=== PATIENT | male | born 1990 | race African-American/Black ===

== ENCOUNTER 2017-01-12 12:22 | Emergency (ER) | payer SELFPAY ==
[2017-01-12 12:36] VITALS: BP 114/69
--- NOTE | 2017-01-12 13:29 | UC ---
UC General HPI - HPI Summary HPI Summary: c/o fatigue body aches, some weight gain no fears chills or night sweats, . Patient is new here from [place]-works to 2 jobs sleeps 5-6 hours q night and awakes every 2 hours. - History of Current Complaint Hx Obtained From: Patient Onset/Duration: Gradual Onset, Lasting Weeks, Worse Since - past 6-8 weeks Timing: Constant <Theodora Oshea - Last Filed: 01/13/17 11:15> <Georgia Estrada - Last Filed: 01/13/17 12:01> - History of Current Complaint Chief Complaint: UCGeneralIllness Stated Complaint: TIRED BODYACHES SOB RAPID WEIGHT GAIN Time Seen by Provider: 01/12/17 12:47 - Allergy/Home Medications Allergies/Adverse Reactions: Allergies Allergy/AdvReac Type Severity Reaction Status Date / Time Amoxicillin Allergy Rash And Verified 01/12/17 12:36 Itching Penicillins Allergy Rash And Verified 01/12/17 12:36 Itching Home Medications: Home Medications [id number]-Ocpeynyk [Excedrin Extra Strength 250-250-65 mg] 2 tab PO Q6HR PRN 01/12/17 [History Confirmed 01/12/17] Ibuprofen [Ibuprofen 200 MG] 600 mg PO Q6HR PRN 01/12/17 [History Confirmed 04/29] PMH/Surg Hx/FS Hx/Imm Hx Previously Healthy: Yes - Surgical History Surgical History: None - Family History Known Family History: Positive: None - Social History Occupation: Employed Full-time, Employed Part-time Lives: Alone Alcohol Use: Daily - 1-2 beers nightly down from 1-2 bottles a night last year Substance Use Type: None Smoking Status (MU): Heavy Every Day Tobacco Smoker Amount Used/How Often: 1.5 packes/weekly Length of Time of Smoking/Using Tobacco: 13years Have You Smoked in the Last Year: Yes Household Exposure Type: Cigarettes - Immunization History Most Recent Influenza Vaccination: Not UTD <Theodora Oshea - Last Filed: 01/13/17 11:15> Review of Systems Constitutional: Fatigue Skin: Negative Eyes: Negative ENT: Negative Respiratory: Negative Cardiovascular: Negative Gastrointestinal: Abdominal Pain Genitourinary: Negative Motor: Negative Neurovascular: Negative Musculoskeletal: Negative Neurological: Negative Psychological: Negative Is Patient Immunocompromised?: No All Other Systems Reviewed And Are Negative: Yes <Theodora Oshea - Last Filed: 01/13/17 11:15> Physical Exam Triage Information Reviewed: Yes Appearance: Well-Appearing, No Pain Distress, Well-Nourished Vital Signs: Initial Vital Signs Temp 98.7 F 01/12/17 12:30 Pulse 62 01/12/17 12:30 Resp 16 01/12/17 12:30 BP 114/69 01/12/17 12:30 Pulse Ox 100 01/12/17 12:30 Vital Signs Reviewed: Yes Eye Exam: Normal Eyes: Positive: Conjunctiva Clear ENT Exam: Normal ENT: Positive: Normal ENT inspection, Hearing grossly normal, Pharynx normal, TMs normal, Uvula midline. Negative: Nasal congestion, Nasal drainage, TM bulging, Tonsillar swelling, Tonsillar exudate, Trismus, Muffled voice, Hoarse voice, Dental tenderness, Sinus tenderness Dental Exam: Normal Neck exam: Normal Neck: Positive: Supple, Nontender, No Lymphadenopathy Respiratory Exam: Normal Respiratory: Positive: Chest non-tender, Lungs clear, Normal breath sounds, No respiratory distress, No accessory muscle use Cardiovascular Exam: Normal Cardiovascular: Positive: RRR, No Murmur, Pulses Normal, Brisk Capillary Refill Abdominal Exam: Normal Abdomen Description: Positive: No Organomegaly, Soft, Other: - epigastric tenderness. Negative: CVA Tenderness (R), CVA Tenderness (L) Bowel Sounds: Positive: Present Musculoskeletal Exam: Normal Musculoskeletal: Positive: Strength Intact, ROM Intact, No Edema Neurological Exam: Normal Neurological: Positive: Alert, Muscle Tone Normal Psychological Exam: Normal Skin Exam: Normal <Theodora Oshea - Last Filed: 01/13/17 11:15> Vital Signs: Initial Vital Signs Temp 98.7 F 01/12/17 12:30 Pulse 62 01/12/17 12:30 Resp 16 01/12/17 12:30 BP 114/69 01/12/17 12:30 Pulse Ox 100 01/12/17 12:30 <Georgia Estrada - Last Filed: 01/13/17 12:01> Diagnostics - Laboratory Diagnostic Studies Completed/Ordered: ua WNL, FSBS WNL <Theodora Oshea - Last Filed: 01/13/17 11:15> Course/Dx - Course Course Of Treatment: lab studies, community resporuce education, follow with pcp - Differential Dx - Multi-Symptom Provider Diagnoses: fatigue <Theodora Oshea - Last Filed: 01/13/17 11:15> Discharge <Theodora Oshea - Last Filed: 01/13/17 11:15> <Georgia Estrada - Last Filed: 01/13/17 12:01> - Discharge Plan Condition: Stable Disposition: HOME Prescriptions: Famotidine TAB 40 MG(NF) [Pepcid TAB 40 MG(NF)] 40 mg PO DAILY #14 tab Ibuprofen TAB* [Motrin TAB* 600 MG] 600 mg PO Q6H PRN #40 tab PRN Reason: pain hydrOXYzine PAMOATE CAP* [Vistaril CAP*] 25 - 50 mg PO BEDTIME #28 cap Patient Education Materials: Chronic Fatigue Syndrome (ED), Chronic Pain (ED), Gastroesophageal Reflux Disease (ED), How to Stop Smoking (ED) Referrals: [facility] [Outside] - 1 Week [facility] [Outside] - 1 Week [facility] [Outside] - 1 Week [facility] [Provider Group] - 1 Week Attestation Statement User Type: Provider - I was available for consult. This patient was seen by the RENATO. The patient was not presented to, seen by, or examined by me. -Raymundo <Georgia Estrada - Last Filed: 01/13/17 12:01>
[2017-01-12 16:19] LABS: Hematocrit 41 % (42-52); Mean Corpuscular HGB Conc 34 g/dl (31-36); Mean Corpuscular Hemoglobin 30 pg (27-31); Mean Corpuscular Volume 88 fL (80-94); Mean Platelet Volume 10 um3 (7.4-10.4); Red Blood Count 4.66 10^6/ul (4.0-5.4); Red Cell Distribution Width 13 % (10.5-15); White Blood Count 7.6 10^3/ul (3.5-10.8)
[2017-01-12 16:50] LABS: Albumin 4.5 g/dL (3.2-5.2); BUN/Creatinine Ratio 10.7 (8-20); Calcium 9.9 mg/dL (8.6-10.3); EGFR African American 103.6 (>60); EGFR Non-African American 80.5 (>60); Globulin 2.5 g/dL (2-4); Potassium 3.9 mmol/L (3.5-5.0); TSH (Thyroid Stimulating Horm) 0.96 mcIU/mL (0.34-5.60); Total Bilirubin 0.4 mg/dL (0.2-1.0)
== END 2017-01-12 14:02 | disposition home or self-care (01) ==
LOC: UCEAST 12:22
DX: R53.83 Other fatigue (principal); F17.210 Nicotine dependence, cigarettes, uncomplicated; Z88.0 Allergy status to penicillin; Z88.1 Allergy status to other antibiotic agents
CPT/HCPCS: 36415; 80053; 81003; 84443; 85025; 86618; 93005; 99202; G0463

== ENCOUNTER 2017-05-11 14:50 | Emergency (ER) | payer SELFPAY ==
[2017-05-11 18:08] VITALS: BP 115/67
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
== END 2017-05-11 18:08 | disposition home or self-care (01) ==
LOC: ED 14:50
DX: R51 Headache (principal); M54.9 Dorsalgia, unspecified; F17.210 Nicotine dependence, cigarettes, uncomplicated
CPT/HCPCS: 99282